=== PATIENT | female | born 1935 | race Caucasian/White ===

== ENCOUNTER 2023-05-21 20:39 | Emergency (ER) | payer MEDICARE, BC ==
[2023-05-21] MEDS ORDERED: Diphtheria,Pertussis(Acell),Tetanus Vaccine 0.5 ML Syringe IM ONE (21:25)
[2023-05-21] MEDS ORDERED: Mupirocin Oint 22 GM Tube TOP ONE (21:26)
[2023-05-21] MEDS ORDERED: Lidocaine 1% with EPINEPHrine 1:100,000 50 ML MDV INFILT ONE (21:26)
[2023-05-21] MEDS ORDERED: Lidocaine 1% with EPINEPHrine 1:100,000 20 ML MDV INJECT ONE (22:04)
[2023-05-21] MEDS ORDERED: Bacitracin Oint 1 GM U/D Packet TOP ONE (22:05)
== END 2023-05-21 21:49 | disposition home or self-care (01) ==
LOC: LB.ED 20:39 → MERGE 20:39 → LB.ED 21:49
DX: S51.011A Laceration without foreign body of right elbow, initial encounter (principal); E78.00 Pure hypercholesterolemia, unspecified; I10 Essential (primary) hypertension; Z23 Encounter for immunization; Z79.899 Other long term (current) drug therapy; Z88.1 Allergy status to other antibiotic agents; Z88.0 Allergy status to penicillin; W01.0XXA Fall on same level from slipping, tripping and stumbling without subsequent striking against object, initial encounter; Y92.009 Unspecified place in unspecified non-institutional (private) residence as the place of occurrence of the external cause
CPT/HCPCS: 12001; 90471; 90715; 99282; 99283-25

== ENCOUNTER 2023-05-24 18:04 | Inpatient (IN) | payer MEDICARE, BC ==
[2023-05-24] MEDS ORDERED: Sodium Chloride 0.9% 10 ML Syringe FLUSH PRN (18:17)
[2023-05-24] MEDS ORDERED: Sodium Chloride 0.9% 1,000 ML IV SCH (18:45)
[2023-05-24 19:00] LABS: HEMATOCRIT 40.9 % (37.0-47.0); HEMOGLOBIN 13.9 g/dL (11.5-16.5); MEAN CORPUSCULAR HEMOGLOBIN 30.3 pg (27.0-32.0); MEAN PLATELET VOLUME 10.6 fL (6.0-10.0); RED BLOOD CELL COUNT 4.59 M/uL (3.80-5.80); RED CELL DISTRIBUTION WIDTH 13.7 % (11.0-16.0); WHITE BLOOD CELL COUNT,WBC 10.8 K/uL (4.0-11.0)
[2023-05-24 19:19] LABS: A/G RATIO 0.6 (0.8-2.0); ALBUMIN 2.7 g/dL (3.4-5.0); BILIRUBIN TOTAL 0.8 mg/dL (0.0-1.0); BUN/CREATININE RATIO 22.3 (6-25); CALCIUM 9.2 mg/dL (8.5-10.1); CARBON DIOXIDE,CO2 21.1 mmol/L (21.0-32.0); CREATININE 1.03 mg/dL (0.55-1.02); EST CRCL DRUG DOSING (CG) 40.03 mL/min; PROTEIN TOTAL,TP 7.2 g/dL (6.4-8.2); TROPONIN I HIGH SENSITIVITY 16.4 pg/ml (<=60.4)
[2023-05-24 19:22] LABS: ANION GAP 17.8 mmol/L (5.0-15.0); POTASSIUM,K 2.9 mmol/L (3.5-5.1)
[2023-05-24 19:47] LABS: MAGNESIUM 1.8 mg/dL (1.8-2.4); PHOSPHORUS 3.5 mg/dL (2.5-4.9)
[2023-05-24] MEDS ORDERED: Iodixanol 550 MG/ML 100 ML Bottle IV ONE (19:47)
[2023-05-24] MEDS ORDERED: Sodium Chloride 0.9% 50 ML SDV FLUSH SCH (20:00)
[2023-05-24] MEDS ORDERED: Simethicone 80 MG Tab.Chew PO PRN (21:30)
[2023-05-24] MEDS: cefTRIAXone 1 GM in Sodium Chloride 0.9% 50 ML IV SCH (21:47)
[2023-05-24] MEDS: NS with KCl 40mEq 1,000 ML IV SCH (22:34)
[2023-05-24] MEDS: Gabapentin 300 MG Cap PO SCH (22:36)
[2023-05-24] MEDS: Heparin Sodium 5,000 Units/ML Vial SUBCUT SCH (22:37)
[2023-05-24] MEDS: Gentamicin 0.3% Ophth Soln 5 ML Bottle EYEBOTH SCH (22:49)
[2023-05-25] MEDS: Gentamicin 0.3% Ophth Soln 5 ML Bottle EYEBOTH SCH ×4 (04:10→21:24)
[2023-05-25] MEDS ORDERED: Non-Formulary Medication 1 Each (Fluticasone Propionate [Flovent] 50 MCG Blst.W.Dev) INH SCH (08:00)
[2023-05-25 08:06] LABS: ANION GAP 14.7 mmol/L (5.0-15.0); BUN/CREATININE RATIO 26.8 (6-25); CREATININE 0.82 mg/dL (0.55-1.02); EST CRCL DRUG DOSING (CG) 50.2 mL/min; POTASSIUM,K 3.7 mmol/L (3.5-5.1)
[2023-05-25] MEDS: Lisinopril 10 MG Tab PO SCH (08:39)
[2023-05-25] MEDS: Pravastatin 20 MG Tab PO SCH (08:41)
[2023-05-25] MEDS: Aspirin 81 MG Tab.EC PO SCH (08:41)
[2023-05-25] MEDS: Metoprolol Succinate 50 MG Tab.ER PO SCH (08:41)
[2023-05-25] MEDS: Heparin Sodium 5,000 Units/ML Vial SUBCUT SCH ×2 (08:42→21:26)
[2023-05-25] MEDS: Mometasone Furoate Powder 220 MCG/Puff 14 Dose Inhaler INH SCH (08:53)
[2023-05-25] MEDS: Gabapentin 300 MG Cap PO SCH ×3 (09:29→21:21)
[2023-05-25] MEDS: cefTRIAXone 1 GM in Sodium Chloride 0.9% 50 ML IV SCH ×2 (09:29→21:20)
[2023-05-25] MEDS: Albuterol/Ipratropium 3.0-0.5 MG/3 ML Neb Soln NEB SCH ×4 (09:30→21:22)
[2023-05-25] MEDS: NS with KCl 40mEq 1,000 ML IV SCH (09:54)
[2023-05-25] MEDS: Iodixanol 550 MG/ML 100 ML Bottle IV ONE ×2 (11:58→13:36)
[2023-05-25] MEDS ORDERED: Sodium Chloride 0.9% 50 ML SDV FLUSH SCH (12:00)
[2023-05-26] MEDS ORDERED: Acetaminophen 325 MG Tab PO PRN (00:12)
[2023-05-26] MEDS ORDERED: Sodium Chloride 0.9% 1,000 ML IV SCH (03:30)
[2023-05-26] MEDS: Gentamicin 0.3% Ophth Soln 5 ML Bottle EYEBOTH SCH ×4 (04:05→22:55)
[2023-05-26] MEDS: Pravastatin 20 MG Tab PO SCH (07:27)
[2023-05-26] MEDS: Gabapentin 300 MG Cap PO SCH ×3 (07:27→20:44)
[2023-05-26] MEDS: Metoprolol Succinate 50 MG Tab.ER PO SCH (07:28)
[2023-05-26] MEDS: Aspirin 81 MG Tab.EC PO SCH (07:28)
[2023-05-26] MEDS: Lisinopril 10 MG Tab PO SCH (07:29)
[2023-05-26] MEDS: Albuterol/Ipratropium 3.0-0.5 MG/3 ML Neb Soln NEB SCH ×4 (07:29→20:44)
[2023-05-26 08:08] LABS: HEMATOCRIT 35.1 % (37.0-47.0); HEMOGLOBIN 11.7 g/dL (11.5-16.5); MEAN CORPUSCULAR HEMOGLOBIN 30.4 pg (27.0-32.0); MEAN CORPUSCULAR HGB CONC 33.3 g/dL (31.0-35.0); MEAN PLATELET VOLUME 10.4 fL (6.0-10.0); RED BLOOD CELL COUNT 3.85 M/uL (3.80-5.80); RED CELL DISTRIBUTION WIDTH 13.7 % (11.0-16.0); WHITE BLOOD CELL COUNT,WBC 7.2 K/uL (4.0-11.0)
[2023-05-26 08:21] LABS: ANION GAP 13.9 mmol/L (5.0-15.0); CALCIUM 8.6 mg/dL (8.5-10.1); CARBON DIOXIDE,CO2 25.1 mmol/L (21.0-32.0); CREATININE 0.75 mg/dL (0.55-1.02); EST CRCL DRUG DOSING (CG) 54.89 mL/min
[2023-05-26] MEDS: Heparin Sodium 5,000 Units/ML Vial SUBCUT SCH ×2 (09:37→20:45)
[2023-05-26] MEDS: cefTRIAXone 1 GM in Sodium Chloride 0.9% 50 ML IV SCH ×2 (10:11→22:53)
[2023-05-26] MEDS: Mometasone Furoate Powder 220 MCG/Puff 14 Dose Inhaler INH SCH (10:13)
[2023-05-26] MEDS: Azithromycin 250 MG Tab PO SCH (10:46)
[2023-05-27] MEDS: Gentamicin 0.3% Ophth Soln 5 ML Bottle EYEBOTH SCH ×4 (07:36→21:15)
[2023-05-27] MEDS: Gabapentin 300 MG Cap PO SCH ×3 (08:15→19:44)
[2023-05-27] MEDS: Aspirin 81 MG Tab.EC PO SCH (08:15)
[2023-05-27] MEDS: Mometasone Furoate Powder 220 MCG/Puff 14 Dose Inhaler INH SCH (08:15)
[2023-05-27] MEDS: Albuterol/Ipratropium 3.0-0.5 MG/3 ML Neb Soln NEB SCH ×4 (08:15→19:44)
[2023-05-27] MEDS: Pravastatin 20 MG Tab PO SCH (08:16)
[2023-05-27] MEDS: Azithromycin 250 MG Tab PO SCH (08:16)
[2023-05-27] MEDS: Lisinopril 10 MG Tab PO SCH (08:27)
[2023-05-27] MEDS: Metoprolol Succinate 50 MG Tab.ER PO SCH (08:27)
[2023-05-27] MEDS: Heparin Sodium 5,000 Units/ML Vial SUBCUT SCH ×2 (09:42→21:15)
[2023-05-27] MEDS: cefTRIAXone 1 GM in Sodium Chloride 0.9% 50 ML IV SCH (09:43)
[2023-05-27] MEDS: Lactobacillus Acidophilus/Lactobacillus Sporogenes (Probiotic) Tab PO SCH (15:04)
[2023-05-27 15:28] LABS: INFLUENZA A NAA NEGATIVE (NEGATIVE); INFLUENZA B NAA NEGATIVE (NEGATIVE); RESPIRATORY SYNCYTIAL VIR NAA NEGATIVE (NEGATIVE)
[2023-05-27 15:38] LABS: CORONAVIRUS COVID-19 NAA NEGATIVE (NEGATIVE)
[2023-05-27] MEDS: Acetaminophen/Codeine 300-30 MG Tab PO PRN (19:44)
[2023-05-28] MEDS: Gentamicin 0.3% Ophth Soln 5 ML Bottle EYEBOTH SCH ×5 (03:55→21:12)
[2023-05-28] MEDS: Pravastatin 20 MG Tab PO SCH (07:37)
[2023-05-28] MEDS: Aspirin 81 MG Tab.EC PO SCH (07:37)
[2023-05-28] MEDS: Metoprolol Succinate 50 MG Tab.ER PO SCH (07:37)
[2023-05-28] MEDS: Lactobacillus Acidophilus/Lactobacillus Sporogenes (Probiotic) Tab PO SCH (07:37)
[2023-05-28] MEDS: Gabapentin 300 MG Cap PO SCH ×3 (07:37→19:37)
[2023-05-28] MEDS: Lisinopril 10 MG Tab PO SCH (07:37)
[2023-05-28] MEDS: Mometasone Furoate Powder 220 MCG/Puff 14 Dose Inhaler INH SCH (07:38)
[2023-05-28] MEDS: Albuterol/Ipratropium 3.0-0.5 MG/3 ML Neb Soln NEB SCH ×4 (07:38→19:29)
[2023-05-28] MEDS: Heparin Sodium 5,000 Units/ML Vial SUBCUT SCH ×3 (09:43→21:11)
[2023-05-28 10:38] LABS: BASOPHILS ABSOLUTE AUTO 0.03 K/uL (0.02-0.10); BASOPHILS PERCENT AUTO 0.3 % (0.0-0.5); EOSINOPHILS PERCENT AUTO 1.9 % (1.0-5.0); HEMATOCRIT 36.1 % (37.0-47.0); HEMOGLOBIN 12.1 g/dL (11.5-16.5); LYMPHOCYTES ABSOLUTE AUTO 1.33 K/uL (1.50-4.00); LYMPHOCYTES PERCENT AUTO 12.6 % (20.0-40.0); MEAN CORPUSCULAR HEMOGLOBIN 30.2 pg (27.0-32.0); MEAN CORPUSCULAR HGB CONC 33.5 g/dL (31.0-35.0); MEAN CORPUSCULAR VOLUME 90 fL (76-96); MEAN PLATELET VOLUME 9.9 fL (6.0-10.0); MONOCYTES ABSOLUTE AUTO 0.56 K/uL (0.20-0.80); MONOCYTES PERCENT AUTO 5.3 % (3.0-10.0); NEUTROPHILS ABSOLUTE AUTO 8.47 K/uL (2.00-7.50); NEUTROPHILS PERCENT AUTO 79.9 % (45.0-70.0); PLATELET COUNT,PLT 322 K/uL (150-500); RED BLOOD CELL COUNT 4.01 M/uL (3.80-5.80); RED CELL DISTRIBUTION WIDTH 13.8 % (11.0-16.0); WHITE BLOOD CELL COUNT,WBC 10.6 K/uL (4.0-11.0)
[2023-05-28 11:08] LABS: A/G RATIO 0.5 (0.8-2.0); ALBUMIN 2.3 g/dL (3.4-5.0); ANION GAP 15.1 mmol/L (5.0-15.0); BILIRUBIN TOTAL 0.2 mg/dL (0.0-1.0); CALCIUM 9.2 mg/dL (8.5-10.1); CARBON DIOXIDE,CO2 26.2 mmol/L (21.0-32.0); CREATININE 0.77 mg/dL (0.55-1.02); EST CRCL DRUG DOSING (CG) 52.16 mL/min; POTASSIUM,K 3.3 mmol/L (3.5-5.1); PROTEIN TOTAL,TP 6.8 g/dL (6.4-8.2)
[2023-05-28] MEDS: Acetaminophen/Codeine 300-30 MG Tab PO PRN (19:37)
== END 2023-05-28 20:12 | DRG 193 ==
LOC: LB.ED 18:04 → LB.MS 21:05 → UNDOADMIN 21:20 → LB.MS 21:20
PROVIDERS: ADMIT Surgery; ATTEND Surgery
DX: J18.9 Pneumonia, unspecified organism (principal); J96.01 Acute respiratory failure with hypoxia; E78.00 Pure hypercholesterolemia, unspecified; G44.89 Other headache syndrome; Z20.822 Contact with and (suspected) exposure to COVID-19; R79.89 Other specified abnormal findings of blood chemistry; I48.91 Unspecified atrial fibrillation; E87.6 Hypokalemia; E86.0 Dehydration; I10 Essential (primary) hypertension; Z88.1 Allergy status to other antibiotic agents; Z88.8 Allergy status to other drugs, medicaments and biological substances; Z79.1 Long term (current) use of non-steroidal anti-inflammatories (NSAID); Z79.82 Long term (current) use of aspirin; Z79.899 Other long term (current) drug therapy; Z90.710 Acquired absence of both cervix and uterus; Z87.891 Personal history of nicotine dependence; Z98.42 Cataract extraction status, left eye; Z98.41 Cataract extraction status, right eye; Z79.01 Long term (current) use of anticoagulants; Z11.52 Encounter for screening for COVID-19; Z88.0 Allergy status to penicillin
CPT/HCPCS: 0241U; 36415; 71045; 71250; 71260; 74177; 80048; 80053; 83735; 83880; 84100; 84484; 85025; 85027; 85379; 93005; 93010; 94640; 96360; 96361; 97110; 97161; 97165; 97530; 97535; 99285; 99222; 99231; 99232; 99238; A9270-GY; J0696; J1644; J3480; J3490; J7030; J7620

== ENCOUNTER 2025-03-03 11:09 | Emergency (ER) | payer MEDICARE, BC | END 2025-03-03 12:45 | disposition home or self-care (01) | LOC: LB.ED 11:09 | DX: R07.89 Other chest pain (principal); E78.00 Pure hypercholesterolemia, unspecified; I10 Essential (primary) hypertension; E11.9 Type 2 diabetes mellitus without complications; Z88.0 Allergy status to penicillin; Z88.8 Allergy status to other drugs, medicaments and biological substances; Z79.82 Long term (current) use of aspirin; Z79.899 Other long term (current) drug therapy; Z87.891 Personal history of nicotine dependence | CPT/HCPCS: 71045; 99284 ==